=== PATIENT | male | born 1960 | race African-American/Black ===

== ENCOUNTER 2021-05-04 09:24 | Observation (INO) ==
[~2021-05-04 09:24] MED LIST: Buffered Lidocaine 1% SYRIN 1 ml INTRADERM ONE; Dexamethasone IV 4 MG/ML VIAL 1 ml VIAL ONE; Ketamine HCL 50 mg/ml 10 ml VIAL (500 MG) ONE; Lactated Ringers 1000 ml BAG 1,000 ML IV SCH; Lidocaine 2% PF 5 ML VIAL ONE; Midazolam 2 mg/2 ml VIAL 1 mg/ml 2 ml VIAL (2 mg) ONE; Ondansetron 4 mg VIAL 2 MG/ML 2 ml VIAL ONE; Propofol 10 MG/ML 20 ML BTL ONE; Rocuronium 50 mg VIAL 10 mg/ml 5 ml VIAL (50 mg) ONE; fentaNYL 250 mcg/5 ml 50 MCG/ML 5 ml VIAL (250 MCG) ONE
[2021-05-04] MEDS ORDERED: ceFAZolin 2 GM PREMIX 2 GM/50 ML BAG ONE (09:36)
[2021-05-04] MEDS ORDERED: ROPIVACAINE 5 MG/ML 30 ML BTL (0.5%) ONE (10:12)
[2021-05-04] MEDS ORDERED: Dexamethasone IV 4 MG/ML VIAL 1 ml VIAL ONE (10:13)
[2021-05-04] MEDS ORDERED: EPHEDrine (Pressors) 50 MG/ML VIAL ONE (11:42)
[2021-05-04] MEDS ORDERED: Rocuronium 50 mg VIAL 10 mg/ml 5 ml VIAL (50 mg) ONE (12:37)
[2021-05-04] MEDS ORDERED: diPHENhydraMINE 25 mg TAB PO PRN (13:44)
[2021-05-04] MEDS ORDERED: Morphine 2 MG/ML SYRINGE IV PRN (13:44)
[2021-05-04] MEDS ORDERED: Magnesium Hydroxide LIQ 30 ML UDC PO PRN (13:44)
[2021-05-04] MEDS ORDERED: Ondansetron ODT 4 mg TAB 4 MG TAB PO PRN (13:44)
[2021-05-04] MEDS ORDERED: oxyCODONE/Acetamin 5/325 mg TAB PO PRN (13:44)
[2021-05-04] MEDS ORDERED: diPHENhydraMINE IV 50 MG/ML 1 ml VIAL (BENADRYL) IV PRN (13:44)
[2021-05-04] MEDS ORDERED: Lactulose 30 ml UDC PO PRN (13:44)
[2021-05-04] MEDS ORDERED: Ondansetron 4 mg VIAL 2 MG/ML 2 ml VIAL IV PRN ×2 (13:44→15:06)
[2021-05-04] MEDS ORDERED: fentaNYL 100 mcg/2 ml 50 MCG/ML VIAL ONE ×2 (14:39→15:01)
[2021-05-04] MEDS: fentaNYL 100 mcg/2 ml 50 MCG/ML VIAL IV PRN ×4 (14:43→15:15)
[2021-05-04] MEDS ORDERED: fentaNYL 100 mcg/2 ml 50 MCG/ML VIAL IV PRN (15:06)
[2021-05-04] MEDS ORDERED: HYDROcodone/ACETAMIN 5/325 mg TAB PO PRN (15:06)
[2021-05-04] MEDS ORDERED: Naloxone 0.4 mg VIAL 0.4 mg/ml 1 ml VIAL IV PRN (15:06)
[2021-05-04] MEDS ORDERED: Metoclopramide 5 MG/ML VIAL (10 mg) IV PRN (15:06)
[2021-05-04] MEDS: Lactated Ringers 1000 ml BAG 1,000 ML IV SCH (16:21)
[2021-05-04] MEDS: ceFAZolin 1 GM ADVAN 1 GM in NS 0.9% 50 ML 50 ML IVPB SCH (18:09)
[2021-05-04] MEDS: Magnesium Hydroxide LIQ 30 ML UDC PO SCH (21:41)
[2021-05-05] MEDS: ceFAZolin 1 GM ADVAN 1 GM in NS 0.9% 50 ML 50 ML IVPB SCH ×2 (02:15→09:49)
[2021-05-05] MEDS: Lactated Ringers 1000 ml BAG 1,000 ML IV SCH (02:18)
[2021-05-05 06:54] LABS: Hematocrit 36 % (42-52); Hemoglobin 12.5 g/dL (14.0-18.0); Mean Platelet Volume 9.9 fL (7.4-10.4); Platelet Count 127 10^3/uL (150-450)
[2021-05-05 07:09] LABS: Calcium 8.7 mg/dL (8.6-10.3); EGFR African American 78.8 (>60); EGFR Non-African American 65.1 (>60); Potassium 4.2 mmol/L (3.5-5.0)
[2021-05-05] MEDS: Magnesium Hydroxide LIQ 30 ML UDC PO SCH (08:34)
[2021-05-05] MEDS ORDERED: Vitamin THERAPEUTIC TAB PO SCH (09:00)
[2021-05-05 16:30] VITALS: BP 133/73
== END 2021-05-05 18:00 ==
LOC: SSU 09:24 → OR 09:24
PROVIDERS: ADMIT Orthopaedic Surgery; ATTEND Orthopaedic Surgery